=== PATIENT | female | born 1980 | race Caucasian/White ===

== ENCOUNTER 2019-04-02 14:47 | Emergency (ER) | payer MEDICAID, SELFPAY ==
[2019-04-02 14:49] VITALS: BP 148/95; PULSE 82; RESP 16; TEMP 36.5; O2SAT 99; BMI 16.1
--- NOTE | 2019-04-02 15:00 | RAD_ITS ---
STUDY: X-RAY - LEFT HAND REASON FOR EXAM: Female, 38 years old. The fifth metacarpal pain following a fall. TECHNIQUE: 3 view(s) of the hand. COMPARISON: None. FINDINGS: Normal radiocarpal articulation. Normal distal radioulnar joint. Normal visualized carpal bones. Normal carpal articulations Normal carpometacarpal articulation of the thumb. Normal second through fifth carpometacarpal joints. Normal metacarpi. Normal metacarpophalangeal joint of the thumb. Normal interphalangeal joint of the thumb. Normal proximal and distal phalanges of the thumb. Normal metacarpophalangeal joints of the second through fifth fingers. Small screw and mesh fixation of the distal portion of the middle phalanx of the fifth digit. Normal phalanges of the second through fifth fingers. The soft tissue structures are unremarkable. RAD/Hand Min 3 Views IMPRESSION: No acute abnormality is seen. Electronically Signed: Mike Yang, at 15:26 EDT , Service support ,
--- NOTE | 2019-04-02 15:10 | ED.VISSUMM ---
- ER Visit Summary Date of Service: 04/02/19 Chief Complaint: Left wrist injury History of Present Illness: The patient is a 38 F who injured her left wrist and hand last evening. Patient states that she was upset. She was leaning against a wall, slid to the ground, and put her left hand out to catch herself. She then later punched the floor. She now has pain around the left wrist and slightly over the fourth and fifth MCP joints. She denies paresthesias. She is right-hand dominant. Physical Examination: Vital signs grossly unremarkable. Patient sitting upright in bed no acute distress. Left upper extremity examination reveals tenderness to palpation with mild edema around the left wrist. Minimal tenderness is noted over the fourth and fifth MCP joints. She has full range of motion. There is no erythema or ecchymosis. There is no tenderness at the elbow or shoulder. Normal cap refill and sensation are noted on testing. Test Results: Left hand x-rays to include wrist are unremarkable per my reading. Emergency Department Course and Treatment: Patient is given Javier wrap. She will use anti-inflammatories as needed for pain. Treatment Plan: [] Disposition: Discharge Impression: Left wrist sprain This note was generated with [employer] dictation software. It may contain incorrect words, spelling, and punctuation that were not noted in review of the chart prior to signing ED Disposition - Plan for ED Patient: Disposition: Home or Assisted Living Instructions: ED Sprain Wrist Referrals: Tiana Billingsley MD [STAFF PHYSICIAN] - As Needed
== END 2019-04-02 15:38 | disposition home or self-care (01) ==
LOC: ED 15:29
PROVIDERS: Emergency Provider Emergency Medicine
DX: S63.502A Unspecified sprain of left wrist, initial encounter (principal); W19.XXXA Unspecified fall, initial encounter; Y93.9 Activity, unspecified; Y92.9 Unspecified place or not applicable
CPT/HCPCS: 73130; 99282

== ENCOUNTER 2020-12-16 01:05 | Emergency (ER) | payer MEDICAID, SELFPAY ==
[2020-11-10 17:31] VITALS: BMI 18.7
[2020-12-16 01:09] VITALS: BP 161/91; PULSE 78; RESP 15; TEMP 37; O2SAT 98; BMI 19.9
--- NOTE | 2020-12-16 01:35 | ED.DCSUM_ITS ---
- ER Visit Summary Date of Service: 12/16/20 Chief Complaint: Abscess History of Present Illness: The patient is a 40 F with no primary care physician. She reports that 10 days ago she got a tattoo on her right forearm. States that pustules popped up randomly surrounding this. They would pop and draining green pus. States that 3 days ago she noticed an abscess to the right side of her chest. States she has a burning pain Zeta 10 at worst and 6 out of 10 currently. Is worsened by nothing. Treated by touching it. Patient was seen at urgent care approximately 36 hours ago and was placed on Keflex and Bactrim. She reports that tonight she had a fever to 103 degrees. She has a sore throat is 3-10 severity. She is had 2 episodes of diarrhea since beginning the antibiotics. She denies any other complaints. Physical Examination: Vitals: Stable. Afebrile. General: Well-nourished and well-developed. Head: Normocephalic atraumatic. Neck: Supple, no lymphadenopathy. No JVD. Nontender. Cardiovascular: Regular rate and rhythm. No murmurs. Respiratory: No respiratory distress. Clear to auscultation bilaterally. Abdominal: Soft, nontender, nondistended, normal bowel sounds. No guarding, rebound, or peritoneal signs. Back: Nontender. Extremities: Nontender, no edema. Skin: Right mid axillary line over approximately the sixth rib there is a 1 cm indurated area with a scab in the center. There is 2 cm surrounding erythema. There is no fluctuance.. Neurologic: Alert and oriented ?3. Cranial nerves II through XII are intact. Normal strength and sensation. Psych: Normal affect. Emergency Department Course and Treatment: I had a prolonged discussion the patient about treatment options. At this time I do not feel any fluctuance. I suspect that there is minimal pus present. She has opted to give the antibiotic s 48 hours to work. Treatment Plan: Patient will be discharged with a prescription for Bactroban ointment and Goldonna. Instructed to continue the Keflex and Bactrim. Use warm compresses to the area. Return to the emergency department in 2 days if not improving. She also given the name and information for Dr. Garvey to follow-up with. Disposition: To home in improved and stable condition. Impression: 1. Early abscess lateral right chest wall. This note was generated with [employer] dictation software. It may contain incorrect words, spelling, and punctuation that were not noted in review of the chart prior to signing ED Disposition - Plan for ED Patient: Instructions: ED Abscess Antibiotic Treatment Only Prescriptions: Mupirocin [Bactroban] 1 applic TOPICAL TID #1 tube Hydrocodone Bitart/Apap 5-325 [Goldonna 5MG-325MG] 1 tablet PO Q4H PRN PRN 2 Days #10 tablet PRN Reason: Pain Referrals: Hussein Garvey MD [STAFF PHYSICIAN] - 3-5 Days if not improving
== END 2020-12-16 01:49 | disposition home or self-care (01) ==
LOC: ED 01:41
PROVIDERS: Emergency Provider Emergency Medicine
DX: L02.213 Cutaneous abscess of chest wall (principal); J02.9 Acute pharyngitis, unspecified; R19.7 Diarrhea, unspecified; R68.83 Chills (without fever); F17.200 Nicotine dependence, unspecified, uncomplicated
CPT/HCPCS: 99282

== ENCOUNTER → 2021-01-04 | Outpatient (CLI) | payer MEDICAID, SELFPAY ==
--- NOTE | 2021-01-04 13:10 | CYST_PTH ---
PATIENT: LUCILA EVANS LOC: [facility] U#:[id number] AGE/SX: 40/F ROOM: RE01/04/[address]: Dr. Sandrita Ames MD : [id number] BED: DIS: 01/04/2021 SPEC #: [id number] RECD: 01/04/21 16:09 STATUS: DONNIE STANLEY #: [id number] OG: 01/04/21 13:[address]: Sandrita Ames DEPT: SURGICAL PATHOLOGY RECD BY: Heike Leong ENTERED: 01/05/21 10:03 SP TYPE: Cyst OTHR DR: No Primary Care Phys Tissues: CYST Procedures: Surgery Specimen Level IV HEADER OPERATION: Excision of cyst of right breast PRE-OP DIAGNOSIS: Right breast cyst TISSUE SUBMITTED: Right breast cyst MICROSCOPIC DIAGNOSIS Right breast cyst, excision: A piece of skin with underlying tissue with focal fat necrosis and chronic inflammation. See comment. BRYAN:kristen 01/06/2021 COMMENT No obvious cyst is noted. Correlation with clinical findings and appropriate follow up are necessary. MICROSCOPIC DESCRIPTION Slides are reviewed. GROSS DESCRIPTION Received in fixative is one container labeled with the patient's name and designated breast cyst. The specimen consists of a single irregular fragment of noriega-white soft tissue measuring 0.6 x 0.5 x 0.2 cm. The specimen is totally submitted in one cassette. / AM:kristen 01/05/21 TC:5 CPT: 70746
== END | disposition home or self-care (01) ==
LOC: LABSPEC 16:20
PROVIDERS: Referring Provider Surgery; Visit Provider Surgery
DX: N60.01 Solitary cyst of right breast (principal)
CPT/HCPCS: 88304; 88305

== ENCOUNTER 2023-05-28 19:21 | Emergency (ER) | payer MEDICAID, SELFPAY ==
[2023-05-28 19:21] VITALS: BP 138/96; PULSE 81; RESP 16; TEMP 36.6; O2SAT 98; BMI 19.5
--- NOTE | 2023-05-28 19:55 | EDS_ITS ---
HPI History of Present Illness Chief Complaint: Cellulitis Narrative Narrative: Patient is a 42-year-old female who is presenting concern for a cyst to the superficial skin of the left upper quadrant of her abdomen since . Patient saw a urgent care on , started Bactrim. Patient went to a different urgent care today and started doxycycline. It is 3 x 3 cm, firm, intermittently draining, causing pain, burning, and patient came to the ER for a third evaluation this evening. Patient has no PCP. Patient has no fever, chills, abdominal pain, nausea or vomiting. Patient has no other acute complaints. She has no systemic complaints. Patient is not a diabetic. Pat kevin's boyfriend is at bedside. Patient works at a gas station. Patient adamantly denies any type of injury, burn, injection, possibility of an insect bite, no other acute complaints at this time. [facility] Medical History (Updated 05/28/23 @ 19:[address] Alvin Marx, ) Acute dysfunction of right eustachian tube Acute pharyngitis Chest wall abscess Mitral valve prolapse Ovarian cyst Home Medications alprazolam 0.5 mg tablet 0.5 mg PO TID PRN Anxiety 12/16/20 [History Last Taken Unknown] mupirocin 2 % topical ointment 1 applic topical TID #1 tube 12/16/20 [Rx Last Taken Unknown] sulfamethoxazole 800 mg-trimethoprim 160 mg tablet 1 ea PO BID 12/16/20 [History Last Taken Unknown] doxycycline hyclate 100 mg tablet 100 mg PO Q12H 05/28/23 [History Last Taken 05/28/23 16:30] hydroxyzine pamoate 50 mg capsule (Vistaril) 50 mg PO TID PRN itching #10 caps 05/28/23 [Rx Last Taken Unknown] mupirocin 2 % topical ointment 1 applic topical TID 14 days #1 tube 05/28/23 [Rx Last Taken Unknown] Allergy/AdvReac Type Severity Reaction Status Date / Time cortisone Allergy EDEMA Verified 05/28/23 19:25 dicyclomine AdvReac Mild Other Verified 05/28/23 19:25 bupropion [From Wellbutrin] AdvReac Other Verified 05/28/23 19:25 tomato AdvReac Other Verified 01/04/21 13:07 Surgical History (Updated 05/28/23 @ 19:33 by Becka Richey) H/O rotator cuff surgery H/O: hysterectomy History of appendectomy History of Social History (Updated 01/04/21 @ 13:[address] Sandrita Ames MD) Smoking Status: Current every day smoker tobacco type: cigarettes ROS ROS ED ROS Narrative REVIEW OF SYSTEMS: Unless otherwise stated in this report the patient's positive and negative responses for review of systems for constitutional, eyes, ENT, cardiovascular, respiratory, gastrointestinal, neurological, , musculoskeletal, and integument systems and related systems to the presenting problem are either stated in the history of present illness or were not pertinent or were negative for the symptoms and/or complaints related to the presenting medical problem. EXAM Physical Exam Narrative Exam Narrative: Vital signs reviewed and patient is not hypoxic. General: The patient appears well and in no apparent distress. Patient is resting comfortably on cart. Not toxic, lethargic, or listless. Skin: Warm, dry, no pallor noted. There is no rash noted. Patient has a 3 x 3 cm firm, indurated abscess to the left upper quadrant, no localized or secondary signs of cellulitis. Patient has a opening in the middle where it has been draining previously, slightly blackish in coloration but not necrotic. No active drainage at this time. Mild to moderate tenderness palpation. Not fluctuant, very hard and firm. Patient 3 x 3 cm firm abscess has the appearance that the patient has been trying to pop it open and drain it. Patient denies. Patient states that the 2 urgent care visits they have not opened and drained or attempted to open and drain the abscess no other signs of any type of Abscesses, cyst, bug bites, injections, hodge, or any other skin abnormalities. Head: Normocephalic, atraumatic Eye: Normal conjunctiva, no drainage, EOMI. PERRL. Ears, Nose, Mouth, and Throat: oral mucosa is moist. Nares patent. Mouth without vesicles. Cardiovascular: Regular Rate and Rhythm, no murmurs, gallops, or rubs Respiratory: Patient is in no distress, no accessory muscle use, lungs are clear to auscultation, no wheezing, rales or rhonchi GI: Soft, no tenderness to palpation, no masses appreciated. No rebound, guarding, or rigidity noted. Indurated abscess as noted to left upper quadrant, please see skin assessment Musculoskeletal: The patient has full range of motion of all extremities and joints with no difficulty. Patient has no motor, no sensory deficits. Neurological: A&O x4, normal speech, no focal neurological deficits. Psychiatric: Cooperative Const Vital Signs: 05/28/23 19:21 05/28/23 20:07 Temperature 98 F Temperature Source Temporal Pulse Rate 81 78 Respiratory Rate 16 18 Blood Pressure 138/96 H 134/60 H Blood Pressure Mean 110 Pulse Ox 98 Oxygen Delivery Method Room Air MDM MDM MDM Narrative Medical decision making narrative: Patient was already started on Bactrim on . Patient had several days of Bactrim. Patient was started on doxycycline today and told to stop taking the Bactrim. After lengthy discussion with patient at bedside, patient will continue doxycycline, finish and continue Bactrim, and patient was placed on Bactroban ointment. Patient was referred to surgeon and wound care. Patient was told not to try to open and drain the abscess or cyst if she had been. Patient is established with PCP as well. No questions at discharge. No secondary signs of cellulitis, this appears to be a superficial abscess, not deep. Nothing intra-abdominal. No additional testing at this time, no systemic complaints. Discharge Plan Triage Chief Complaint: Cellulitis ED Provider: Alvin Marx Dx/Rx/DC Orders Clinical Impression: Abscess Instructions: Abscess Drainage, ED Abscess Antibiotic Treatment Only Prescriptions: New mupirocin [mupirocin] 2 % ointment 1 applic topical TID 14 Days Qty: 1 0RF hydroxyzine pamoate [Vistaril] 50 mg capsule 50 mg PO TID PRN (Reason: itching) Qty: 10 0RF No Action sulfamethoxazole-trimethoprim 1 EACH tablet 1 ea PO BID alprazolam 0.5 MG tablet 0.5 mg PO TID PRN (Reason: Anxiety) mupirocin 1 APPLIC ointment 1 applic TOPICAL TID Qty: 1 0RF doxycycline hyclate 100 mg tablet 100 mg PO Q12H Primary Care Provider: Care Physician,No Primary Referrals: Yoshi Saucedo MD [Med Staff - Active Staff] - Care Physician,No Primary [Primary Care Provider] - Wound,Center [Non-Staff] - Activity Restrictions/Additional Instructions: Continue using heating pads or warm soaks 20 minutes at a time 4-5 times a day to help promote drainage. Make a follow-up appointment with surgeon and wound care as discussed. Finish taking Bactrim and doxycycline and the bactroban. Continue alternating Tylenol and anti-inflammatories every 4 hours at home for pain Disposition Disposition: Home, Self Care Discharge Date/Time: 05/28/23 20:08
[2023-05-28] MEDS: hydrOXYzine PAM 25 MG Capsule 50 MG PO (20:05)
[2023-05-28 20:07] VITALS: BP 134/60; PULSE 78; RESP 18
== END 2023-05-28 20:08 | disposition home or self-care (01) ==
PROVIDERS: Emergency Provider Emergency Medicine; Visit Provider Emergency Medicine
DX: L02.211 Cutaneous abscess of abdominal wall (principal); F17.210 Nicotine dependence, cigarettes, uncomplicated; Z90.710 Acquired absence of both cervix and uterus; Z90.49 Acquired absence of other specified parts of digestive tract
CPT/HCPCS: 99283

== ENCOUNTER 2023-06-19 09:30 | Outpatient (RCR) | payer MEDICAID, SELFPAY ==
[2023-06-07 09:05] VITALS: BP 119/86; PULSE 81; RESP 20; TEMP 36.2; BMI 19.8
--- NOTE | 2023-06-07 10:15 | PCM.WC.HP ---
History of Present Illness Date of Service: 06/07/23 Chief Complaint: Wound left upper abdomen History of Wound: Patient is a 42 year old female who presents for further evaluation of wound on her left upper abdomen. She state that it started the first week of May, it was red, raised, painful with a back spot in the center, she states it looked like a bug bite, but she know she wasn't bit by anything. She went to 2 different urgent cares where she was initially started on Bactrim and then a few days later at the second urgent care on 05/28/23, she was started on Doxycycline and told to stop the the Bactrim. She went to the ED later in the day after the second urgent care. It was decided to have her continue the Doxycycline and when that was completed she was to complete the Bactrim. She also was to do warm compresses to help the abscess drain and place Mupirocin ointment daily. She was then referred to the wound center. She states that she has completed both antibiotics that she was prescribed. She states that it never drained but developed a scab in the center. She states that over the past 10 years she has had several episodes of these abscesses over the years. She states she does not have a PCP. Her only medical history is MVP. She denies any fever, chills , nausea or vomiting. She presents today for further evaluation. Progress of Wound: Left upper abdomen wound with a scab present. She states that it never drained. [facility] Medical History Acute dysfunction of right eustachian tube Acute pharyngitis Chest wall abscess Mitral valve prolapse Ovarian cyst Home Medications mupirocin 2 % topical ointment 1 applic topical TID #1 tube 12/16/20 [Rx Last Taken Unknown] doxycycline hyclate 100 mg tablet 100 mg PO Q12H 05/28/23 [History Last Taken 06/07/23] loperamide 2 mg capsule (Anti-Diarrheal (loperamide)) 2 mg PO Q6H 06/07/23 [History Last Taken 06/06/23] Allergy/AdvReac Type Severity Reaction Status Date / Time cortisone Allergy EDEMA Verified 05/28/23 19:25 dicyclomine AdvReac Mild Other Verified 05/28/23 19:25 bupropion [From Wellbutrin] AdvReac Other Verified 05/28/23 19:25 tomato AdvReac Other Verified 01/04/21 13:07 Surgical History H/O rotator cuff surgery H/O: hysterectomy History of appendectomy History of Social History Smoking Status: Current every day smoker tobacco type: cigarettes ROS Constitutional Constitutional: Reports systems reviewed and no addt'l complaints, except as documented Eyes Eyes: Reports systems reviewed and no addt'l complaints, except as documented ENT HEENT: Reports systems reviewed and no addt'l complaints, except as documented Cardiovascular Cardiovascular: Reports as per HPI Respiratory/Chest Respiratory/Chest: Reports systems reviewed and no addt'l complaints, except as documented Gastrointestinal Gastrointestinal: Reports none Genitourinary Genitourinary: Reports none Musculoskeletal Musculoskeletal: Reports none Integumentary Integumentary: Reports as per HPI and non-healing lesions Neurologic Neurologic: Reports none Psychiatric Psychiatric: Reports none Endocrine Endocrinology: Reports none Vital Signs Vital Signs Vital Signs: 06/07/23 09:05 Temperature 97.1 F L Temperature Source Temporal Pulse Rate 81 Respiratory Rate 20 H Blood Pressure 119/86 H Blood Pressure Mean 97 Blood Pressure Source Monitor Weight Weight: 122 lb 15.423 oz Body Mass Index (BMI) 19.8 Physical Exam Const alert, oriented x3 and no apparent distress General Appearance: cooperative and well kempt HEENT normocephalic Head and Scalp: atraumatic Eyes General Eye: normal appearance of both eyes Neck full ROM Resp normal respiratory effort, normal air movement and clear to auscultation bilaterally Effort and Inspection: able to speak in complete sentences Cardio regular rate and regular rhythm GI soft to palpation and non-tender Back/Spine normal ROM Extremity full ROM and normal capillary refill Peripheral Pulses: Yes pulses 2+ throughout Skin Wound Narrative: Ulcer left upper quadrant of abdomen with a scab present. Neuro oriented x3 Psych mental status grossly normal and thought process normal Debridement Note Debridement Note Wound debrided: Upper abdomen Laterality: Left Type of Debridement: Excisional debridement Anesthesia Used: 5% Lidocaine Gel Depth: Down to and including healthy tissue and in the subcutaneous layer Percentage of wound debrided: 100 Instrument Used: - (scissors and pick ups) Tissue Removed: Devitalized tissue and slough Severity: Fat Layer Exposed Amount of bleeding with debridement: Mild Bleeding Controlled with: Pressure and Compression and gauze Patient tolerated procedure: Patient tolerated procedure well Debridement Free Text: Unroofed scab that was present. Post-Debridement Measurements and Additional Note: Post-Debridement Measurements/Treatment WC - Nurse 1 - General Ulcer Assessment Start: 06/07/23 09:05 Freq: Status: Active Protocol: RACHEL Activity Type Activity Date Activity User E-sign Co-sign Detail Recorded Client Recorded Date Recorded By Document 06/07/23 09:05 DL [id number] 06/07/23 09:21 DL 06/07/23 09:05 - Today's Visit Information Type of service Initial Visit Arrival Mode Ambulatory Transfer Assistance None Patient Identification Verified (Name & Yes ) Patient Requires Transmission-Based No Precautions Height and Weight Height 5 ft 6 in Weight 122 lb 15.423 oz Weight in Pounds 123.0 lbs Body Mass Index (BMI) 19.8 BMI Classification Normal BSA - Miguelina 1.63 Vital Signs Temperature (97.8 F-99.1 F) 97.1 F L Temperature Source Temporal Pulse Rate (60-100) 81 Pulse Location Monitor Respiratory Rate (12-18) 20 H Respiratory rate source Observation Blood Pressure (90/60-120/80) 119/86 H Blood Pressure Mean 97 Source Monitor Pain Scale: 0-10 Numeric Is Patient Pain Free? Yes Communication Assessment Preferred language Vietnamese Able to Read Yes Able to Write No Communication Tools None Right Hearing Abillity Normal Left Hearing Abillity Normal Visual Assistive Devices Glasses Teaching Assessment Preferences Verbal,Written, Demonstration Barriers to Learning None Readiness To Learn Good Willingness to Engage in Self Management Med Activies Readiness to Engage in Self Management Med Activities Anxiety Level Calm Cooperation Cooperative Perception Coherent Interest in Health Problem Asks Questions Education Importance Acknowledges Need Does Patient Smoke tobacco or other Yes substances Smoking Status Current every day smoker Is Patient Diabetic No Functional Assessment Recent Decline in Ability to Perform Denies Any Declines Culture/Sikhism/Mail Handler Cultural/Sikhism Needs that may affect No Treatment Plan Would you allow our hospital manager machine to No meet you for the purpose of spiritual/ emotional support? Mail Handler to contact place of anabaptist No Teaching: Wound Center Discharge Instructions -Person Taught Patient *Welcome to the Wound Center -Person Taught Patient WC - Nurse 1 - General Ulcer Measurement Start: 06/07/23 09:05 Freq: Status: Active Protocol: Activity Type Activity Date Activity User E-sign Co-sign Detail Recorded Client Recorded Date Recorded By Document 06/07/23 09:05 DL [id number] 06/07/23 09:21 DL 06/07/23 09:05 Wound Center Nurse 1 #1 L Lat Abd -Current Size (cm) - Length 0.5 -Current Size (cm) - Width 0.7 -Current Size (cm) - Depth 0.2 -Total Square Cm 0.35 -Photo Taken Yes -Classification - Thickness Full Thickness without Exposed Support Structure -Exudate Amt Small -Exudate Type Serosanguineous -Wound Margin Distinct, Outline Attached -Granulation Amt None Present (0 %) -Necrosis Amt Small (1-33%) -Necrotic Tissue Type Eschar -Structure Exposed N/A -Texture (Anna-wound Skin Appearance) Scarring -Moisture (Anna-wound Skin Appearance) No Abnormality -Color (Anna-wound Skin Appearance) Erythema -Temperature (Anna-wound Skin No Abnormality Appearance) (Pt Warm) -Tenderness on Palpation (Anna-wound Yes Skin Appearance) -Ulcer Cleansing Soap and Water -Foul Odor after Cleansing No -Anesthetic Used 5% Lidocaine Gel ZULEMA - Nurse 2 - General Ulcer CM Notes Start: 06/07/23 09:05 Freq: Status: Active Protocol: Activity Type Activity Date Activity User E-sign Co-sign Detail Recorded Client Recorded Date Recorded By Document 06/07/23 09:50 MILAN [id number] 06/07/23 09:52 MILAN 06/07/23 09:50 Wound Center Nurse 2 -Time 09:51 -Correct Patient Yes -Correct Side, Site, Position Yes -Correct Procedure Yes -Procedure Performed Yes -Type of Procedure Debridement -Clinical Debridement Subcutaneous -Tissue Removed Subcutaneous -Post Debridement (cm) - Length 0.7 -Post Debridement (cm) - Width 0.8 -Post Debridement (cm) - Depth 0.5 -Total Square (Post) (cm) 0.56 -Area of Debridement (cm) - Length 0.7 -Area of Debridement (cm) - Width 0.8 -Total Square (Area) (cm) 0.56 -Tunneling No -Undermining/Tunneling No -Circular Undermining No -Wound/Ulcer Outcome Not Healed -Ulcer Cleansing Rinsed/ Irrigated with Saline -Foul Odor after Cleansing No -Bioengineered Tissue No -Bleeding Controlled with Silver Nitrate -Treatment Response Procedure Tolerated Well -Offloading No -Debridement - Subq, 1st 20sq cm Yes Pain Scale: 0-10 Numeric Is Patient Pain Free? Yes - Nurse 3 - General Ulcer D/C NN Start: 06/07/23 09:05 Freq: Status: Active Protocol: Activity Type Activity Date Activity User E-sign Co-sign Detail Recorded Client Recorded Date Recorded By Document 06/07/23 10:01 BECK [id number] 06/07/23 10:03 PL 06/07/23 10:01 Wound Care Center Nurse 3 #1 L Lat Abd -Ulcer Cleansing Rinsed/ Irrigated with Saline -Foul Odor after Cleansing No -Primary Dressing Applied Mepilex Border, Promogran Kat Matter -Mepilex Border 1 -Promogran Kat Matter 1 Pain Scale: 0-10 Numeric Is Patient Pain Free? Yes - Visit Discharge Discharge Condition Stable Ambulatory Status Ambulatory Transportation Private Auto Charges/Coding Visit Charges Office Visits / Consults: 23146 OV L4 Est (25 modifier) Procedures Integumentary 111xxx-113xx: 26059 Trisha subq tissue 20 sq cm/< Assessment/Plan Assessment/Plan (1) Wound, open, anterior abdominal wall: CODE(S): S31.109A - Unspecified open wound of abdominal wall, unspecified quadrant without penetration into peritoneal cavity, initial encounter (2) Current smoker: CODE(S): F17.200 - Nicotine dependence, unspecified, uncomplicated (3) History of abscess of skin and subcutaneous tissue: CODE(S): Z87.2 - Personal history of diseases of the skin and subcutaneous tissue PLAN: Plan Patient evaluated at the wound healing center. Unroofed the scabbing present on the ulcer on her right upper abdomen. Clinically looks like MRSA. A wound culture was obtained today.? A positive culture will necessitate antibiotic therapy. Wound care - Moistened Kat covered with [place] SAP daily after washing with soap and water. Instructed her to do good hand hygiene before and after the dressing change. Follow up one week. Encouraged patient to stop smoking as it may have deleterious effects on wound healing. Patient is moving to this area, so will refer her for a PCP for her to establish care. Greater than 25 minutes spent with patient, educating, plan of care and reviewing previous documentation.
[2023-06-12 09:27] VITALS: BP 115/77; PULSE 67; RESP 16; TEMP 36.1; BMI 19.8
--- NOTE | 2023-06-12 10:06 | PN.PCM_ITS ---
History of Present Illness Date of Service: 06/12/23 Chief Complaint: Wound left upper abdomen History of Wound: Patient is a 42 year old female who presents for further evaluation of wound on her left upper abdomen. She state that it started the first week of May, it was red, raised, painful with a back spot in the center, she states it looked like a bug bite, but she know she wasn't bit by anything. She went to 2 different urgent cares where she was initially started on Bactrim and then a few days later at the second urgent care on 05/28/23, she was started on Doxycycline and told to stop the the Bactrim. She went to the ED later in the day after the second urgent care. It was decided to have her continue the Doxycycline and when that was completed she was to complete the Bactrim. She also was to do warm compresses to help the abscess drain and place Mupirocin ointment daily. She was then referred to the wound center. She states that she has completed both antibiotics that she was prescribed. She states that it never drained but developed a scab in the center. She states that over the past 10 years she has had several episodes of these abscesses over the years. She states she does not have a PCP. Her only medical history is MVP. She denies any fever, chills , nausea or vomiting. Wound culture from 06/07/23 positive for MRSA. Will treat with Levaquin since she had a severe sun reaction to the Doxycycline and she works on a farm. She denies fever, chills, nausea and vomiting. Progress of Wound: Left upper abdomen wound is much smaller. Her cultures were positive for MRSA, will have her wash daily with chlorhexidine from the neck down for one week. Brandt start her on Levaquin because she states she had a severe sun reaction when she was on Doxycycline and she works on a farm. Since she has had multiple abscesses over the past several years, will have her place Mupirocin ointment twice a day in each nares x one week. Objective Data Objective Data Vital Signs: Vital Signs Temp Pulse Resp BP O2 Del Method 96.9 F L 67 16 115/77 Room Air 06/12/23 09:27 06/12/23 09:27 06/12/23 09:27 06/12/23 09:27 06/12/23 09:27 Oxygen Delivery Method Room Air Weight: 122 lb 15.423 oz Body Mass Index (BMI) 19.8 Lab / Micro Data Micro: Microbiology 06/07/23 Unknown Wound - Abdominal Gram Stain - Final 06/07/23 Unknown Wound - Abdominal Wound Culture - Final Meth. resistant Staph. aureus 06/07/23 Unknown Wound - Abdominal Anaerobic Culture - Final No anaerobic bacteria isolated. Charges/Coding Procedures Integumentary 111xxx-113xx: 09744 Trisha subq tissue 20 sq cm/< Debridement Note Debridement Note Wound debrided: Upper abdomen Laterality: Left Type of Debridement: Excisional debridement Anesthesia Used: 5% Lidocaine Gel Depth: Down to and including healthy tissue and in the subcutaneous layer Percentage of wound debrided: 100 Instrument Used: 3mm curette Tissue Removed: Devitalized tissue and slough Severity: Fat Layer Exposed Amount of bleeding with debridement: Mild Bleeding Controlled with: Pressure and Compression and gauze Patient tolerated procedure: Patient tolerated procedure well Debridement Free Text: Unroofed scab that was present. Post-Debridement Measurements and Additional Note: Post-Debridement Measurements/Treatment - Nurse 1 - General Ulcer Assessment Start: 06/07/23 09:05 Freq: Status: Active Protocol: ZULEMA.SHANE Activity Type Activity Date Activity User E-sign Co-sign Detail Recorded Client Recorded Date Recorded By Document 06/07/23 09:05 [id number] 06/07/23 09:21 DL Document 06/12/23 09:27 [facility] [id number] 06/12/23 09:36 [facility] 06/07/23 06/12/23 09:05 09:27 - Today's Visit Information Type of service Initial Visit Follow-up Visit (Physician/GLUE COOK ) Arrival Mode Ambulatory Ambulatory Transfer Assistance None None Patient Identification Verified (Name & Yes Yes ) Patient Requires Transmission-Based No No Precautions Height and Weight Height 5 ft 6 in Weight 122 lb 15.423 oz Weight in Pounds 123.0 lbs Body Mass Index (BMI) 19.8 19.8 BMI Classification Normal Normal BSA - Miguelina 1.63 Vital Signs Temperature (97.8 F-99.1 F) 97.1 F L 96.9 F L Temperature Source Temporal Temporal Pulse Rate (60-100) 81 67 Pulse Location Monitor Monitor Respiratory Rate (12-18) 20 H 16 Respiratory rate source Observation Observation Oxygen Delivery Method Room Air Blood Pressure (90/60-120/80) 119/86 H 115/77 Blood Pressure Mean (mm Hg) 97 89 Source Monitor Monitor Position Sitting Blood Pressure Location Left Arm History Since Last Visit- (Skip if this is Patient's initial visit) Have you changed medications since your No last visit? Any new allergies or adverse reactions No Had a fall/change in ADL's that may No increase risk of falls Signs or symptoms of abuse and/or No neglect since last visit Have you been in the hospital since your No last visit? Has dressing in place as prescribed Yes Has compression in place as prescribed N/A Has offloadiing in place as prescribed N/A Experienced any changes in pain level or No management Left Footwear Regular Shoe Right Footwear Regular Shoe Pain Scale: 0-10 Numeric Is Patient Pain Free? Yes Yes Communication Assessment Preferred language [place] Able to Read Yes Able to Write No Communication Tools None Right Hearing Abillity Normal Left Hearing Abillity Normal Visual Assistive Devices Glasses Teaching Assessment Preferences Verbal,Written, Demonstration Barriers to Learning None Readiness To Learn Good Willingness to Engage in Self Management Med Activies Readiness to Engage in Self Management Med Activities Anxiety Level Calm Cooperation Cooperative Perception Coherent Interest in Health Problem Asks Questions Education Importance Acknowledges Need Does Patient Smoke tobacco or other Yes substances Smoking Status Current every day smoker Is Patient Diabetic No Functional Assessment Recent Decline in Ability to Perform Denies Any Declines Culture/Orthodoxy/Finance Director Cultural/Orthodoxy Needs that may affect No Treatment Plan Would you allow our hospital press tender incendiary grenade to No meet you for the purpose of spiritual/ emotional support? Finance Director to contact place of jew No Teaching: Wound Center Discharge Instructions -Person Taught Patient *Welcome to the Wound Center -Person Taught Patient WC - Nurse 1 - General Ulcer Measurement Start: 06/07/23 09:05 Freq: Status: Active Protocol: Activity Type Activity Date Activity User E-sign Co-sign Detail Recorded Client Recorded Date Recorded By Document 06/07/23 09:05 DL [id number] 06/07/23 09:21 DL Document 06/12/23 09:27 [facility] [id number] 06/12/23 09:36 BMF 06/07/23 06/12/23 09:05 09:27 Wound Center Nurse 1 #1 L Lat Abd -Combined with other wound No -Current Size (cm) - Length 0.5 0.3 -Current Size (cm) - Width 0.7 0.4 -Current Size (cm) - Depth 0.2 0.3 -Total Square Cm 0.35 0.12 -Date of Last Picture (Recall this 06/12/23 field) -Photo Taken Yes Yes -Epithelialization Small 1-33% -Tunneling No -Undermining/Tunneling No -Circular Undermining No -Classification - Thickness Full Thickness without Exposed Support Structure -Exudate Amt Small Medium -Exudate Type Serosanguineous Serosanguineous -Wound Margin Distinct, Distinct, Outline Outline Attached Attached -Granulation Amt None Present (0 Large (67-100%) %) -Granulation Quality Red -Slough/Fibrin Yes -Necrosis Amt Small (1-33%) Small (1-33%) -Necrotic Tissue Type Eschar Adherent Slough -Structure Exposed N/A -Texture (Anna-wound Skin Appearance) Scarring Assessed, Localized Edema ,Scarring -Moisture (Anna-wound Skin Appearance) No Abnormality Assessed -Color (Anna-wound Skin Appearance) Erythema Assessed -Temperature (Anna-wound Skin No Abnormality No Abnormality Appearance) (Pt Warm) (Pt Warm) -Tenderness on Palpation (Anna-wound Yes No Skin Appearance) -Ulcer Cleansing Soap and Water Rinsed/ Irrigated with Saline -Foul Odor after Cleansing No No -Anesthetic Used 5% Lidocaine 5% Lidocaine Gel Gel WC - Nurse 2 - General Ulcer CM Notes Start: 06/07/23 09:05 Freq: Status: Active Protocol: Activity Type Activity Date Activity User E-sign Co-sign Detail Recorded Client Recorded Date Recorded By Document 06/07/23 09:50 [id number] 06/07/23 09:52 Document 06/12/23 09:50 MW [id number] 06/12/23 09:55 MW 06/07/23 06/12/23 09:50 09:50 Wound Center Nurse 2 #1 L Lat Abd -Time 09:51 09:50 -Correct Patient Yes Yes -Correct Side, Site, Position Yes Yes -Correct Procedure Yes Yes -Procedure Performed Yes Yes -Type of Procedure Debridement Debridement -Clinical Debridement Subcutaneous Subcutaneous -Tissue Removed Subcutaneous Subcutaneous -Post Debridement (cm) - Length 0.7 0.2 -Post Debridement (cm) - Width 0.8 0.5 -Post Debridement (cm) - Depth 0.5 0.1 -Total Square (Post) (cm) 0.56 0.10 -Area of Debridement (cm) - Length 0.7 0.2 -Area of Debridement (cm) - Width 0.8 0.5 -Total Square (Area) (cm) 0.56 0.10 -Tunneling No No -Undermining/Tunneling No No -Circular Undermining No No -Wound/Ulcer Outcome Not Healed Not Healed -Ulcer Cleansing Rinsed/ Rinsed/ Irrigated with Irrigated with Saline Saline -Foul Odor after Cleansing No No -Bioengineered Tissue No No -Bleeding Controlled with Silver Nitrate Pressure -Treatment Response Procedure Procedure Tolerated Well Tolerated Well -Offloading No No -Debridement - Subq, 1st 20sq cm Yes Yes Pain Scale: 0-10 Numeric Is Patient Pain Free? Yes Yes - Nurse 3 - General Ulcer D/C NN Start: 06/07/23 09:05 Freq: Status: Active Protocol: Activity Type Activity Date Activity User E-sign Co-sign Detail Recorded Client Recorded Date Recorded By Document 06/07/23 10:01 BECK [id number] 06/07/23 10:03 PL Document 06/12/23 10:03 [id number] 06/12/23 10:03 KW 06/07/23 06/12/23 10:01 10:03 Wound Care Center Nurse 3 #1 L Lat Abd -Ulcer Cleansing Rinsed/ Rinsed/ Irrigated with Irrigated with Saline Saline -Foul Odor after Cleansing No -Primary Dressing Applied Mepilex Border, Promogran Kat Matter -Primary Dressing Covered/Secured with Other -Other Covering pt own dressing supplies -Mepilex Border 1 -Promogran Kat Matter 1 Pain Scale: 0-10 Numeric Is Patient Pain Free? Yes Yes - Visit Discharge Discharge Condition Stable Stable Ambulatory Status Ambulatory Ambulatory Transportation Private Auto Private Auto Medication Reconcilliation completed & No provided to patient/care provider Clinical Summary of Care Provided Yes Assessment/Plan Assessment/Plan (1) Wound, open, anterior abdominal wall: CODE(S): S31.109A - Unspecified open wound of abdominal wall, unspecified quadrant without penetration into peritoneal cavity, initial encounter (2) MRSA infection (methicillin-resistant Staphylococcus aureus): CODE(S): A49.02 - Methicillin resistant Staphylococcus aureus infection, unspecified site (3) History of abscess of skin and subcutaneous tissue: CODE(S): Z87.2 - Personal history of diseases of the skin and subcutaneous tissue (4) Current smoker: CODE(S): F17.200 - Nicotine dependence, unspecified, uncomplicated PLAN: Plan Patient evaluated at the wound healing center. Wound care - Moistened Kat covered with [place] SAP daily after washing with soap and water. Instructed her to do good hand hygiene before and after the dressing change. Wound culture 06/07/23 positive for MRSA. Will start her on Levaquin daily since she had a severe sun reaction when being on Doxycycline. Will have her wash daily from the neck down with Chlorhexidine wash for one week. Will have her place Mupirocin ointment twice daily in each nares for one week. Follow up one week. Encouraged patient to stop smoking as it may have deleterious effects on wound healing. Patient is moving to this area, so will refer her for a PCP for her to establish care. Greater than 25 minutes spent with patient, educating, plan of care and reviewing previous documentation.
[2023-06-19 09:35] VITALS: BP 127/78; PULSE 70; RESP 18; TEMP 36.4; BMI 19.8
--- NOTE | 2023-06-19 10:14 | PCM.WC.PN ---
History of Present Illness Date of Service: 06/19/23 Chief Complaint: Wound left upper abdomen History of Wound: Patient is a 42 year old female who presents for further evaluation of wound on her left upper abdomen. She state that it started the first week of May, it was red, raised, painful with a back spot in the center, she states it looked like a bug bite, but she know she wasn't bit by anything. She went to 2 different urgent cares where she was initially started on Bactrim and then a few days later at the second urgent care on 05/28/23, she was started on Doxycycline and told to stop the the Bactrim. She went to the ED later in the day after the second urgent care. It was decided to have her continue the Doxycycline and when that was completed she was to complete the Bactrim. She also was to do warm compresses to help the abscess drain and place Mupirocin ointment daily. She was then referred to the wound center. She states that she has completed both antibiotics that she was prescribed. She states that it never drained but developed a scab in the center. She states that over the past 10 years she has had several episodes of these abscesses over the years. She states she does not have a PCP. Her only medical history is MVP. She denies any fever, chills , nausea or vomiting. Wound culture from 06/07/23 positive for MRSA. Will treat with Levaquin since she had a severe sun reaction to the Doxycycline and she works on a farm. She denies fever, chills, nausea and vomiting. Progress of Wound: Left upper abdomen wound is healed today. She will finishing using Mupirocin ointment twice a day in each nares today. Objective Data Objective Data Vital Signs: Vital Signs Temp Pulse Resp BP O2 Del Method 97.5 F L 70 18 127/78 H Room Air 06/19/23 09:35 06/19/23 09:35 06/19/23 09:35 06/19/23 09:35 06/12/23 09:27 Oxygen Delivery Method Room Air Weight: 122 lb 15.423 oz Body Mass Index (BMI) 19.8 Lab / Micro Data Micro: Microbiology 06/07/23 Unknown Wound - Abdominal Gram Stain - Final 06/07/23 Unknown Wound - Abdominal Wound Culture - Final Meth. resistant Staph. aureus 06/07/23 Unknown Wound - Abdominal Anaerobic Culture - Final No anaerobic bacteria isolated. Charges/Coding Visit Charges Office Visits / Consults: [id number] OV L3 Est Physical Exam Const alert, oriented x3 and no apparent distress General Appearance: cooperative and well kempt HEENT normocephalic Head and Scalp: atraumatic Eyes General Eye: normal appearance of both eyes Neck full ROM Resp normal respiratory effort, normal air movement and clear to auscultation bilaterally Effort and Inspection: able to speak in complete sentences Cardio regular rate and regular rhythm GI soft to palpation and non-tender Back/Spine normal ROM Extremity full ROM and normal capillary refill Peripheral Pulses: Yes pulses 2+ throughout Skin Wound Narrative: Ulcer left upper quadrant of abdomen wound is healed today. Neuro oriented x3 Psych mental status grossly normal and thought process normal Debridement Note Debridement Note No debridement was completed: No debridement was completed today Post-Debridement Measurements and Additional Note: Post-Debridement Measurements/Treatment [email or web address] - Nurse 1 - General Ulcer Assessment Start: 06/07/23 09:05 Freq: Status: Active Protocol: RACHEL Activity Type Activity Date Activity User E-sign Co-sign Detail Recorded Client Recorded Date Recorded By Document 06/07/23 09:05 [id number] 06/07/23 09:21 DL Document 06/12/23 09:27 [facility] [id number] 06/12/23 09:36 [facility] Document 06/19/23 09:35 DL [id number] 06/19/23 09:39 DL 06/07/23 06/12/23 06/19/23 09:05 09:27 09:35 - Today's Visit Information Type of service Initial Visit Follow-up Visit Follow-up Visit (Physician/MOVIE EDITOR (Physician/MOVIE EDITOR ) ) Arrival Mode Ambulatory Ambulatory Ambulatory Transfer Assistance None None None Patient Identification Verified (Name & Yes Yes Yes ) Patient Requires Transmission-Based No No No Precautions Height and Weight Height 5 ft 6 in Weight 122 lb 15.423 oz Weight in Pounds 123.0 lbs Body Mass Index (BMI) 19.8 19.8 19.8 BMI Classification Normal Normal Normal BSA - Miguelina 1.63 Vital Signs Temperature (97.8 F-99.1 F) 97.1 F L 96.9 F L 97.5 F L Temperature Source Temporal Temporal Temporal Pulse Rate (60-100) 81 67 70 Pulse Location Monitor Monitor Monitor Respiratory Rate (12-18) 20 H 16 18 Respiratory rate source Observation Observation Observation Oxygen Delivery Method Room Air Blood Pressure (90/60-120/80) 119/86 H 115/77 127/78 H Blood Pressure Mean (mm Hg) 97 89 94 Source Monitor Monitor Monitor Position Sitting Blood Pressure Location Left Arm History Since Last Visit- (Skip if this is Patient's initial visit) Have you changed medications since your No No last visit? Any new allergies or adverse reactions No No Had a fall/change in ADL's that may No No increase risk of falls Signs or symptoms of abuse and/or No No neglect since last visit Have you been in the hospital since your No No last visit? Has dressing in place as prescribed Yes Yes Has compression in place as prescribed N/A N/A Has offloadiing in place as prescribed N/A N/A Experienced any changes in pain level or No No management Left Footwear Regular Shoe Right Footwear Regular Shoe Pain Scale: 0-10 Numeric Is Patient Pain Free? Yes Yes Yes Communication Assessment Preferred language [place] Citizen Able to Read Yes Able to Write No Communication Tools None Right Hearing Abillity Normal Left Hearing Abillity Normal Visual Assistive Devices Glasses Teaching Assessment Preferences Verbal,Written, Demonstration Barriers to Learning None Readiness To Learn Good Willingness to Engage in Self Management Med Activies Readiness to Engage in Self Management Med Activities Anxiety Level Calm Cooperation Cooperative Perception Coherent Interest in Health Problem Asks Questions Education Importance Acknowledges Need Does Patient Smoke tobacco or other Yes substances Smoking Status Current every day smoker Is Patient Diabetic No Functional Assessment Recent Decline in Ability to Perform Denies Any Declines Culture/Moravian/Licensing Analyst Cultural/Moravian Needs that may affect No Treatment Plan Would you allow our hospital industrial millwright to No meet you for the purpose of spiritual/ emotional support? Licensing Analyst to contact place of congregation No Teaching: Wound Center Discharge Instructions -Person Taught Patient *Welcome to the Wound Center -Person Taught Patient WC - Nurse 1 - General Ulcer Measurement Start: 06/07/23 09:05 Freq: Status: Active Protocol: Activity Type Activity Date Activity User E-sign Co-sign Detail Recorded Client Recorded Date Recorded By Document 06/07/23 09:05 DL [id number] 06/07/23 09:21 DL Document 06/12/23 09:27 BMF [id number] 06/12/23 09:36 BM Document 06/19/23 09:35 DL [id number] 06/19/23 09:39 DL 06/07/23 06/12/23 06/19/23 09:05 09:27 09:35 Wound Center Nurse 1 #1 L Lat Abd -Combined with other wound No -Current Size (cm) - Length 0.5 0.3 0 -Current Size (cm) - Width 0.7 0.4 0 -Current Size (cm) - Depth 0.2 0.3 0 -Total Square Cm 0.35 0.12 0 -Date of Last Picture (Recall this 06/12/23 field) -Photo Taken Yes Yes Yes -Epithelialization Small 1-33% -Tunneling No -Undermining/Tunneling No -Circular Undermining No -Classification - Thickness Full Thickness without Exposed Support Structure -Exudate Amt Small Medium None Present -Exudate Type Serosanguineous Serosanguineous -Wound Margin Distinct, Distinct, Flat & Intact Outline Outline Attached Attached -Granulation Amt None Present (0 Large (67-100%) Large (67-100%) %) -Granulation Quality Red Pale -Slough/Fibrin Yes -Necrosis Amt Small (1-33%) Small (1-33%) None Present (0 %) -Necrotic Tissue Type Eschar Adherent Slough -Structure Exposed N/A N/A -Texture (Anna-wound Skin Appearance) Scarring Assessed, Scarring Localized Edema ,Scarring -Moisture (Anna-wound Skin Appearance) No Abnormality Assessed No Abnormality -Color (Anna-wound Skin Appearance) Erythema Assessed No Abnormality -Temperature (Anna-wound Skin No Abnormality No Abnormality No Abnormality Appearance) (Pt Warm) (Pt Warm) (Pt Warm) -Tenderness on Palpation (Anna-wound Yes No Skin Appearance) -Ulcer Cleansing Soap and Water Rinsed/ Rinsed/ Irrigated with Irrigated with Saline Saline -Foul Odor after Cleansing No No No -Anesthetic Used 5% Lidocaine 5% Lidocaine 5% Lidocaine Gel Gel Gel WC - Nurse 2 - General Ulcer CM Notes Start: 06/07/23 09:05 Freq: Status: Active Protocol: Activity Type Activity Date Activity User E-sign Co-sign Detail Recorded Client Recorded Date Recorded By Document 06/07/23 09:50 MILAN [id number] 06/07/23 09:52 JF Document 06/12/23 09:50 MW [id number] 06/12/23 09:55 MW Document 06/19/23 09:45 JF [id number] 06/19/23 09:47 JF 06/07/23 06/12/23 06/19/23 09:50 09:50 09:45 Wound Center Nurse 2 #1 L Lat Abd -Time 09:51 09:50 -Correct Patient Yes Yes No -Correct Side, Site, Position Yes Yes No -Correct Procedure Yes Yes No -Procedure Performed Yes Yes No -Type of Procedure Debridement Debridement -Clinical Debridement Subcutaneous Subcutaneous -Tissue Removed Subcutaneous Subcutaneous -Post Debridement (cm) - Length 0.7 0.2 0 -Post Debridement (cm) - Width 0.8 0.5 0 -Post Debridement (cm) - Depth 0.5 0.1 0 -Total Square (Post) (cm) 0.56 0.10 0 -Area of Debridement (cm) - Length 0.7 0.2 0 -Area of Debridement (cm) - Width 0.8 0.5 0 -Total Square (Area) (cm) 0.56 0.10 0 -Tunneling No No -Undermining/Tunneling No No -Circular Undermining No No -Wound/Ulcer Outcome Not Healed Not Healed Healed- Epithelialized -Ulcer Cleansing Rinsed/ Rinsed/ Irrigated with Irrigated with Saline Saline -Foul Odor after Cleansing No No -Bioengineered Tissue No No -Bleeding Controlled with Silver Nitrate Pressure -Treatment Response Procedure Procedure Tolerated Well Tolerated Well -Offloading No No -Debridement - Subq, 1st 20sq cm Yes Yes Pain Scale: 0-10 Numeric Is Patient Pain Free? Yes Yes Yes WC - Nurse 3 - General Ulcer D/C NN Start: 06/07/23 09:05 Freq: Status: Active Protocol: Activity Type Activity Date Activity User E-sign Co-sign Detail Recorded Client Recorded Date Recorded By Document 06/07/23 10:01 PL [id number] 06/07/23 10:03 PL Document 06/12/23 10:03 KW [id number] 06/12/23 10:03 KW Document 06/19/23 09:47 JF [id number] 06/19/23 09:47 JF 06/07/23 06/12/23 06/19/23 10:01 10:03 09:47 Wound Care Center Nurse 3 #1 L Lat Abd -Ulcer Cleansing Rinsed/ Rinsed/ Irrigated with Irrigated with Saline Saline -Foul Odor after Cleansing No -Primary Dressing Applied Mepilex Border, Promogran Kat Matter -Primary Dressing Covered/Secured with Other -Other Covering pt own dressing supplies -Mepilex Border 1 -Promogran Kat Matter 1 Pain Scale: 0-10 Numeric Is Patient Pain Free? Yes Yes Yes WC - Visit Discharge Discharge Condition Stable Stable Stable Ambulatory Status Ambulatory Ambulatory Ambulatory Transportation Private Auto Private Auto Private Auto Medication Reconcilliation completed & No Yes provided to patient/care provider Clinical Summary of Care Provided Yes Yes Assessment/Plan Assessment/Plan (1) Wound, open, anterior abdominal wall: CODE(S): S31.109A - Unspecified open wound of abdominal wall, unspecified quadrant without penetration into peritoneal cavity, initial encounter (2) MRSA infection (methicillin-resistant Staphylococcus aureus): CODE(S): A49.02 - Methicillin resistant Staphylococcus aureus infection, unspecified site (3) History of abscess of skin and subcutaneous tissue: CODE(S): Z87.2 - Personal history of diseases of the skin and subcutaneous tissue (4) Current smoker: CODE(S): F17.200 - Nicotine dependence, unspecified, uncomplicated PLAN: Plan Patient evaluated at the wound healing center. Her wound is healed today. Encouraged her to massage the scarring daily with lotion to help soften the scarring. Wound culture 06/07/23 positive for MRSA. Will start her on Levaquin daily since she had a severe sun reaction when being on Doxycycline. She can stop using the Chlorhexidine wash. She will finish the Mupirocin ointment twice daily today. Encouraged patient to stop smoking as it may have deleterious effects on wound healing. Patient is moving to this area, so will refer her for a PCP for her to establish care. Follow up as needed.
== END 2023-06-19 23:59 | disposition home or self-care (01) ==
LOC: WC 09:30
PROVIDERS: Referring Provider Emergency Medicine; Visit Provider Nurse Practitioner Family
DX: L98.492 Non-pressure chronic ulcer of skin of other sites with fat layer exposed (principal); I34.1 Nonrheumatic mitral (valve) prolapse; B95.62 Methicillin resistant Staphylococcus aureus infection as the cause of diseases classified elsewhere; F17.210 Nicotine dependence, cigarettes, uncomplicated; Z79.899 Other long term (current) drug therapy; Z87.2 Personal history of diseases of the skin and subcutaneous tissue
CPT/HCPCS: 11042; 87070; 87075; 87077; 87186; 87205; 99213; G0463